=== PATIENT | female | born 2000 | race Caucasian/White ===

== ENCOUNTER 2022-12-21 16:21 | Emergency (ER) | payer OTHER ==
[~2022-12-21] VITALS: Ht 167.6 cm; Wt 127.0 kg
[2022-12-21 16:29] VITALS: BP 127/68; RESP 18; TEMP 97.8; O2SAT 100
[2022-12-21] MEDS ORDERED: IBUP-2213 PO (19:02)
== END 2022-12-21 19:27 | disposition home or self-care (01) ==
LOC: MED 16:21
DX: N64.4 Mastodynia (principal); Z79.899 Other long term (current) drug therapy
CPT/HCPCS: 81002; 81025; 99284